=== PATIENT | female | born 1980 | race Caucasian/White ===

== ENCOUNTER 2023-06-17 09:58 | Day surgery (SDC) | payer BC ==
[2023-06-15 11:50] VITALS: BMI 31.1
[2023-06-17] MEDS ORDERED: Gentamicin 80 MG/2 ML VIAL ONE (11:14)
[2023-06-17] MEDS ORDERED: Bupivacaine PF 0.5% 30 ML VIAL ONE (11:15)
[2023-06-17] MEDS ORDERED: fentaNYL 50 mcg/mL 1 mL Vial ONE (11:39)
[2023-06-17] MEDS ORDERED: Dexamethasone 20 MG/5 ML VIAL ONE (11:39)
[2023-06-17] MEDS ORDERED: Lidocaine 1% PF 5 ML VIAL ONE (11:39)
[2023-06-17] MEDS ORDERED: Ondansetron PF 4 MG/2 ML Vial ONE (11:39)
[2023-06-17] MEDS ORDERED: Midazolam HCl 2 mg/2 ml Vial ONE (11:39)
[2023-06-17] MEDS ORDERED: PROPOFOL 20 ML ONE (11:39)
[2023-06-17] MEDS ORDERED: Ketorolac Tromethamine 30 MG/ML VIAL ONE (11:39)
[2023-06-17] MEDS ORDERED: CEFAZOLIN 2 GM VIAL ONE (11:40)
[2023-06-17] MEDS ORDERED: EPINEPHrine 1 MG/ML AMP ONE (12:31)
== END 2023-06-17 14:20 | disposition home or self-care (01) ==
LOC: CSHSDC 09:58
PROVIDERS: ATTEND Podiatrist Foot & Ankle Surgery
PROC: 0QSP04Z Reposition Left Metatarsal with Internal Fixation Device, Open Approach (ICD-10-PCS; principal; 2023-06-17)
DX: M20.11 Hallux valgus (acquired), right foot (principal); M21.612 Bunion of left foot
CPT/HCPCS: C1713; J0171; J1100; J1580; J1885; J2250; J2405; J2704; J3010; S0020